=== PATIENT | male | born 1955 ===

== ENCOUNTER 2025-03-12 13:52 | Outpatient (CLI) | payer OTHER ==
[~2025-03-12 13:52] MED LIST: ECOTRIN81 MG PO; LIPITOR40 MG PO
== END 2025-03-12 13:54 | disposition home or self-care (01) ==
LOC: RAD 13:52
DX: M25.511 Pain in right shoulder (principal)

== ENCOUNTER 2025-03-19 09:00 | Day surgery (SDC) | payer OTHER ==
[2025-03-12 13:39] VITALS: BP 136/81
[~2025-03-19] VITALS: Ht 175.3 cm; Wt 81.6 kg
[2025-03-19] MEDS ORDERED: HEMOSTATIC MATRIX 1 KIT KIT TOP ONE (10:59)
[2025-03-19] MEDS ORDERED: POVIDONE-IODINE 118 ML BOTT TOP ONE (10:59)
[2025-03-19] MEDS ORDERED: DIBUCAINE 30 GM TUBE ONE (10:59)
[2025-03-19] MEDS ORDERED: LIDOCAINE HCL 1%/EPINEPHRINE 20ML VIAL IJ ONE (10:59)
[2025-03-19] MEDS ORDERED: BUPIVACAINE HCL/MPF 0.5% 30ML VIAL ONE (10:59)
[2025-03-19] MEDS ORDERED: CEFOXITIN SODIUM 2,000 MG VIAL IV ONE (11:30)
== END 2025-03-19 15:20 | disposition home or self-care (01) ==
LOC: CIR.AMB 09:00
PROVIDERS: ATTEND Colon & Rectal Surgery
DX: K60.1 Chronic anal fissure (principal)